=== PATIENT | male | born 1970 | race Caucasian/White ===

== ENCOUNTER 2022-12-24 03:08 | Emergency (ER) | payer OTHER, SELFPAY ==
[2022-12-24 03:15] VITALS: BP 113/71; PULSE 75; RESP 21; TEMP 36.7; O2SAT 98; BMI 38.1
--- NOTE | 2022-12-24 03:19 | XRR_ITS ---
PROCEDURE INFORMATION: Exam: XR Chest Exam date and time: 12/24/2022 3:23 AM Age: 52 years old Clinical indication: Patient HX: Near syncope. History of burnpit exposure. TECHNIQUE: Imaging protocol: Radiologic exam of the chest. Views: 1 view. COMPARISON: No relevant prior studies available. FINDINGS: Lungs: No focal airspace disease. Pleural spaces: Unremarkable. No pleural effusion. No pneumothorax. Heart/Mediastinum: Cardiomediastinal silhouette is within normal limits. Bones/joints: Unremarkable. XR/XR chest 1V portable [id number] IMPRESSION: No acute cardiopulmonary abnormality.
--- NOTE | 2022-12-24 03:19 | ECG_ITS ---
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 Measurements Intervals [place] Rate: 63 P: 54 [place]: 227 QRS: 52 QRSD: 119 T: 36 QT: 386 QTc: 396 Interpretive Statements SINUS RHYTHM WITH FIRST DEGREE AV BLOCK POSSIBLE RIGHT VENTRICULAR CONDUCTION DELAY [RSR (QR) IN V1/V2] No previous ECG available for comparison Electronically Signed On 12-24-2022 8:26:08 CDT by Janett Bajwa M.D. [id number]
--- NOTE | 2022-12-24 03:22 | ED_ITS ---
HPI - Syncope General: Chief Complaint: Syncope Stated Complaint: light headed,syncope Time Seen by Provider: 12/24/22 03:11 Source: patient Mode of arrival: ambulatory Limitations: no limitations History of Present Illness: 52-year-old male states tonight he is still nauseous and like he had about a b owel movement states that he started to feel flushed and very lightheaded and diaphoretic. He states he did have a syncopal event lasted seconds states that he woke up he did not have a bowel movement states he started to feel slightly improved he denies any chest pain he did have some dyspnea as well he has had a lot of recent travel. Denies any fever or headache. Associated symptoms: Deny abdominal pain, chest pain, fever(s), headache(s) or nausea Review of Systems Const: Denies: fever(s), chills, body aches or change in appetite ENMT: Denies: throat pain or dental pain Card: Reports: syncope; Denies: chest pain Resp: Denies: dyspnea GI: Denies: abdominal pain, nausea, vomiting or diarrhea Musc: Denies: neck pain or back pain Skin/Breast: Denies: rash Neuro: Denies: headache(s) Physical Exam Const: COMMON NORMALS: no acute distress, patient oriented x3 and healthy appearing HENMT: COMMON NORMALS: normocephalic and atraumatic HEAD & SCALP: normocephalic and atraumatic Eye: COMMON NORMALS: Equal, round and reactive pupils present and EOMs intact bilaterally PUPIL: Yes Equal, round and reactive pupils present Neck/C-Spine: COMMON NORMALS: full ROM and supple Chest: COMMONS NORMALS: normal inspection of the chest and normal palpation of entire chest wall Resp: COMMON NORMALS: normal respiratory effort, No retractions, No use of accessory muscles and clear to auscultation bilaterally AUSCULTATION: clear to auscultation bilaterally Cardio: COMMON NORMALS: regular rate, regular rhythm and No murmurs present (Cardio) RATE: regular rate RHYTHM: regular rhythm GI: COMMON NORMALS: Normal to inspection, nondistended, normoactive bowel sounds present, Soft to palpation, non-tender and no masses PALPATION: Yes Soft to palpation Extremity: COMMON NORMALS: normal to inspection and full ROM Neuro: COMMON NORMALS: patient oriented x3, moves all extremities and no focal motor deficits Psych: COMMON NORMALS: mental status grossly normal, Normal thought process present and cooperative THOUGHT PROCESS: Normal thought process present Skin: COMMON NORMALS: no rashes or lesions noted and no wounds GENERAL SKIN EXAM: no rashes or lesions noted Course Vital Signs: Vital signs: Vital Signs Temperature 98.0 F 12/24/22 03:15 Pulse Rate 61 12/24/22 04:09 Respiratory Rate 16 12/24/22 04:09 Blood Pressure 106/78 12/24/22 04:09 Pulse Oximetry 93 12/24/22 04:09 Oxygen Delivery Me thod Room Air 12/24/22 04:09 MDM - Syncope Medical Decision Making Patient presents here with a syncopal event is likely a vagal response patient's blood work here is normal troponins normal D-dimer is negative he is well- appearing here he is stable for discharge she is to follow-up with PCP and return if worsening. Medical Records I reviewed the patient's medical records. Lab Data I reviewed the patient's lab results. 12/24/22 03:40 12/24/22 03:40 Laboratory Results WBC 6.04 10^3/uL (3.29-11.43) 12/24/22 03:40 RBC 4.81 10^6/uL (3.85-5.65) 12/24/22 03:40 Hgb 14.90 g/dL (11.27-16.99) 12/24/22 03:40 Hct 43.3 % (37-53) 12/24/22 03:40 MCV 90.0 fl (82-101) 12/24/22 03:40 MCH 31.0 pg (27-33) 12/24/22 03:40 MCHC 34.4 g/dL (30-55) 12/24/22 03:40 RDW 12.6 % (12.1-15.1) 12/24/22 03:40 Plt Count 243 10^3/cmm (157-399) 12/24/22 03:40 MPV 9.1 fL (7.4-10.4) 12/24/22 03:40 Neut % (Auto) 45.9 % 12/24/22 03:40 Lymph % (Auto) 35.8 % 12/24/22 03:40 Mckean % (Auto) 11.3 % 12/24/22 03:40 Eos % (Auto) 5.8 % 12/24/22 03:40 Baso % (Auto) 1.0 % 12/24/22 03:40 Neut # (Auto) 2.78 10^3/uL (1.8-7.7) 12/24/22 03:40 Lymph # (Auto) 2.2 10^3/uL (0.8-4.8) 12/24/22 03:40 Mckean # (Auto) 0.7 10^3/uL (0.2-0.9) 12/24/22 03:40 Eos # (Auto) 0.4 10^3/uL (0.0-0.8) 12/24/22 03:40 Baso # (Auto) 0.1 10^3/uL (0.0-0.1) 12/24/22 03:40 Nucleated RBC % (auto) 0 % 12/24/22 03:40 Nucleated RBCs # 0.0 /100WBC 12/24/22 03:40 D-Dimer 0.33 ug/mLFEU (0-0.59) 12/24/22 03:40 Sodium 138 mmol/L (136-145) 12/24/22 03:40 Potassium 3.6 mmol/L (3.5-5.1) 12/24/22 03:40 Chloride 102 mmol/L (98-107) 12/24/22 03:40 Carbon Dioxide 26 mmol/L (22-29) 12/24/22 03:40 Anion Gap 13.6 (5-19) 12/24/22 03:40 BUN 15 mg/dL (6-20) 12/24/22 03:40 Creatinine 0.9 mg/dL (0.7-1.2) 12/24/22 03:40 GFR Calculation 89.3 mL/min (90-130) L 12/24/22 03:40 Glucose 110 mg/dL (65-115) 12/24/22 03:40 Calculated Osmolality 287 mOsm/kg (285-295) 12/24/22 03:40 Calcium 9.6 mg/dL (8.5-10.5) 12/24/22 03:40 Total Bilirubin 0.4 mg/dL (0.15-1.2) 12/24/22 03:40 AST 19 U/L (0-40) 12/24/22 03:40 ALT 26 U/L (0-41) 12/24/22 03:40 Alkaline Phosphatase 51 U/L (40-130) 12/24/22 03:40 Troponin T Baseline 8 ng/L (0-15) 12/24/22 03:40 Total Protein 6.7 g/dL (6.6-8.7) 12/24/22 03:40 Albumin 4.6 g/dL (3.5-5.2) 12/24/22 03:40 Globulin 2.1 g/dL (1.3-4.6) 12/24/22 03:40 XR interpretation done by ED provider, pending radiology final review EKG Data EKG 1: I personally reviewed and interpreted this EKG as follows: EKG interpretation date: 12/24/22 EKG interpretation time: 03:26 Interpretation: nsr hr [address] or t wave abnormalities qrs 119 qtc 393 Discharge Plan Discharge Patient Disposition: Home Clinical Impression: Syncope Condition: Stable Discharge Orders: Discharge ED (Routine); Ordered 12/24/22 Ordered By: Sly Talbert Discharge Diet: Advance as tolerated Discharge Activity: Resume usual activity Patient Instructions: Syncope (ED) Coding Level of Care Code ED Refrigerator Repair Technician for Nestor Mayorga
[2022-12-24 03:46] LABS: Basophils # 0.1 10^3/uL (0.0-0.1); Eosinophils # 0.4 10^3/uL (0.0-0.8); Eosinophils % 5.8 %; Hematocrit 43.3 % (37-53); Lymphocytes # 2.2 10^3/uL (0.8-4.8); Lymphocytes % 35.8 %; Mean Corpuscular HGB Conc 34.4 g/dL (30-55); Mean Platelet Volume 9.1 fL (7.4-10.4); Monocytes # 0.7 10^3/uL (0.2-0.9); Monocytes % 11.3 %; Neutrophils # 2.78 10^3/uL (1.8-7.7); Neutrophils % 45.9 %; Nucleated Red Blood Cells % 0 %; Platelet Count 243 10^3/cmm (157-399); Red Blood Count 4.81 10^6/uL (3.85-5.65); Red Cell Distribution Width 12.6 % (12.1-15.1); White Blood Count 6.04 10^3/uL (3.29-11.43)
[2022-12-24] MEDS: sodium chloride 0.9% 1,000 ML 999 ML IV (03:52)
[2022-12-24 03:56] VITALS: BP 113/71; PULSE 63; RESP 14; O2SAT 98
[2022-12-24 04:00] LABS: D Dimer 0.33 ug/mLFEU (0-0.59)
[2022-12-24 04:02] LABS: Troponin(5th) Baseline 8 ng/L (0-15)
[2022-12-24 04:04] LABS: Alanine Aminotransferase 26 U/L (0-41); Albumin Level 4.6 g/dL (3.5-5.2); Alkaline Phosphatase 51 U/L (40-130); Anion Gap 13.6 (5-19); Aspartate Amino Transferase 19 U/L (0-40); Blood Urea Nitrogen 15 mg/dL (6-20); Calcium 9.6 mg/dL (8.5-10.5); Carbon Dioxide 26 mmol/L (22-29); Chloride 102 mmol/L (98-107); Globulin 2.1 g/dL (1.3-4.6); Glomerular Filtration Rate 89.3 mL/min (90-130); Glucose 110 mg/dL (65-115); Osmolality Calculated 287 mOsm/kg (285-295); Potassium 3.6 mmol/L (3.5-5.1); Sodium 138 mmol/L (136-145); Total Bilirubin 0.4 mg/dL (0.15-1.2); Total Protein 6.7 g/dL (6.6-8.7)
[2022-12-24 04:09] VITALS: BP 106/78; PULSE 61; RESP 16; O2SAT 93
== END 2022-12-24 04:25 | disposition home or self-care (01) ==
PROVIDERS: Emergency Provider Emergency Medicine
DX: R55 Syncope and collapse (principal)
CPT/HCPCS: 71045; 80053; 84484; 85025; 85378; 93005; 99285; J7030